=== PATIENT | male | born 1995 | race Caucasian/White ===

== ENCOUNTER 2025-04-05 08:26 | Emergency (ER) | payer SELFPAY ==
[2025-04-05 08:27] VITALS: BP 149/111; PULSE 109; RESP 18; TEMP 35.8; O2SAT 100; BMI 32.1
[2025-04-05 09:01] LABS: Hematocrit 45.8 % (40-54); Hemoglobin 16.4 g/dL (13.0-16.5); Immature Granulocytes Count 0.010 X10^3/uL (0.0-0.0); Mean Corp Hgb Conc 35.8 g/dL (32-36); Mean Corpuscular Volume 85.0 fL (80-94); Mean Platelet Vol. 10.7 fl (6.2-12.0); NRBC Flagged by Analyzer 0 % (0-5); Platelet Count 280 K/mm3 (150-450); RBC Distribution Width CV 12.2 % (11.6-14.6); RBC Distribution Width SD 36.6 fl (35.1-43.9); Red Blood Count 5.39 M/mm3 (4.6-6.2); White Blood Count 5.6 K/mm3 (4.4-11.0)
[2025-04-05 09:20] LABS: Alcohol, Blood (Medical)-Serum < 10.1 mg/dL (<=10.0); Anion Gap 11 (5-15); BUN 13 mg/dL (4-19); BUN/Creat Ratio 16.5 RATIO (10-20); Calcium,Total 9.6 mg/dL (7.6-11.0); Carbon Dioxide 27.2 mmol/L (21.0-32.0); Chloride 100 mmol/L (98-108); Estimated Creatinine Clearance 181.53 ml/min (50-250); Glucose 330 mg/dL (70-99); Potassium 4.3 mmol/L (3.3-5.1)
[2025-04-05 09:47] VITALS: BP 133/85; PULSE 91; RESP 18; O2SAT 100
[2025-04-05 11:24] LABS: Barbiturate Urine NEGATIVE (< 200 ng/mL); Benzodiazepine Urine NEGATIVE (< 200 ng/mL); PCP Urine NEGATIVE (< 25 ng/mL); THC Urine NEGATIVE (< 50 ng/mL)
[2025-04-05 12:53] VITALS: BP 130/90; PULSE 93; RESP 17; TEMP 36.8; O2SAT 97
== END 2025-04-05 13:09 | disposition home or self-care (01) ==
PROVIDERS: Emergency Provider Student in an Organized Health Care Education/Training Program; Visit Provider Student in an Organized Health Care Education/Training Program
DX: R45.851 Suicidal ideations (principal); F41.9 Anxiety disorder, unspecified; F32.A Depression, unspecified
CPT/HCPCS: 80048; 80307; 82077; 85025; 99283

== ENCOUNTER 2025-05-04 08:00 | Outpatient (RCR) | payer MEDICAID, SELFPAY ==
--- NOTE | 2025-05-04 10:10 | BH.SGPN.GN ---
Behaviors/Verbalizations/Mental Status: [] Eye contact is good. Motor activity is appropriate. Appearance is casual. Speech is Appropriate. Mood is euthymic Affect is congruent. Thoughts are linear and logical. No evidence of psychosis. Client Response/Progress/Benefit: [] Pt first day in program and engaged in session AEB listening attentively to others and providing input throughout. Pt engaged in activity, able to connect how it can be uncomfortable and difficult to practice acceptance when situations are out of one?s own control. Identified what they are struggling to accept in personal life. Worked with peer group to define acceptance and identify the benefits that acceptance can bring. Benefits included; reduced anger, self forgiveness, moving forward, and improved mental health. Seemed to benefit from increased awareness of the meaning as well as the importance of acceptance. Will continue in IOP to improve emotion regulation, increase overall functioning, and prevent decompensation. Narrative Note: []
--- NOTE | 2025-05-04 11:15 | BH.SGPN.GN ---
Behaviors/Verbalizations/Mental Status: [] Pt alert and oriented, casually dressed and groomed. Eye contact good. Motor activity appropriate. Speech within normal limits. Affect congruent, mood euthymic. Thoughts linear, logical, no signs of hallucinations or delusions. Client Response/Progress/Benefit: [] Pt's first day in program and responded well to session AEB taking notes and contributing to discussion throughout. Pt engaged as group continued discussion on acceptance and the mental health benefits of practicing acceptance. Pt and peers identified what makes acceptance challenging and pt completed a self-reflection exercise on what is hard to accept in pt's life. Group identified strategies to increase acceptance. Pt noted wanting to work on ?gratitude and going with the flow? as a strategy for improving acceptance. Pt appeared to benefit from gaining insight and learning strategies to increase acceptance. Pt will continue IOP tx to promote mood stability, reinforce healthy coping skills, and combat distortions. Narrative Note: []
--- NOTE | 2025-05-05 07:46 | BH.PSY.EVA_ITS ---
Intake Vital Signs 04/05/25 08:27 05/05/25 07:47 05/05/25 09:16 Height 6 ft 1 in 6 ft 1 in 6 ft Weight: 245 lb BP 131/94 H Pulse 91 Intake Visit Reasons: IOP intake evaluation Allergies No Known Allergies Allergy (Verified 05/05/25 09:17) Medications ?Medication ?Instructions ?Recorded ?Confirmed ?Type sertraline 50 mg tablet 50 mg PO DAILY #30 tabs 04/16 07/09 Rx PFSH () Medical History Anxiety disorder, unspecified Major depressive disorder, recurrent severe without psychotic features Anxiety Depression Non-smoker Social History Smoking Status: Never smoker HPI () History of Present Illness History provided by: patient Chief complaint: depression/anxiety HPI: Sanya Rivera is a 29 year old male who presents today for eval as part of [facility] IOP. Patient reports to having had suicidal thoughts for the past 1-2 years. Recently lost housing, car and job all around the same time. Started with losing his housing as he has essentially not been able to afford lifestyle. Had been living with his brother in [place] but after his mother sold an old car that brother thought was his, his brother was taking frustration out on him. Then moved in to a hotel and couldn't continue to afford. This caused him to lose his car because of the costs as well. Now living with his sister in [place]. Was working at [employer] but couldn't drive to work because of lack of transportation. Reports that his mood is little depressed which has been baseline for prolonged period. After two days of living with sister, made comment about wanting to kill self while taking a shower. Sister encouraged him to go to ER and then was referred to [facility]. Does try to do things like take a hike to help with mood symptoms, which helps to some degree. Reports to having depressive symptoms first around 2017 and 2018. Does have fleeting passive thoughts of suicide. Denies intent or plan. Voices family as positive preventative factor. Does admit to feeling more anxious in past month. Sleep: usually gets 4-6 hours Interest: will play video games, reduced frieda Guilt: admits to feeling both guilty and worthless Energy: normal possibly low Concentration: can stay on a task Appetite: normally; denies any major weight change recently Psychomotor: slowing Suicide: admits to current passive, fleeting thoughts Memory: fine Anxiety: admits to feeling more anxious than normal Obsessions: denies Compulsions: denies Kathy:denies PTSD: denies Psychosis: denies history of auditory or visual hallucinations, denies disorganized thoughts, denies disorganized speech Developmental History Developmental History: Siblings - 1 brother, 1 sister Born/Raised - [place], [place] Education - graduated from [employer] Living Situation - lives with sister Legal Issues - denies Employment - currently working at [employer] for the past two weeks Psychiatric History Previous psychiatric treatment history: No Previous psychiatric diagnoses: ADHD Previous psychiatric treatment programs: none Family Psychiatric History: Sister - depression Paternal aunt - depression Maternal uncle - completed suicide Suicidal Ideation Current: Yes Intent: No Plan: No Past: Yes History of suicide attempt: No Suicide Risk Assessment Suicide risk factors: depression and financial trouble Suicide protective factors: responsibility for family and family support Self Injurious Behavior Current: none Past: none Medication Trials Previous psychiatric medication trials: Ritalin - took as a child Current/Previous Provider Psychiatrist: denies Therapist: remote past none current Other Substance Use History Nicotine- denies Alcohol- very occasional on special occasions Marijuana- denies Stimulants- denies Opioids- denies Other- denies Review of systems () Constitutional Denies: fever(s), chills, change in weight or fatigue Eyes Denies: change in vision or blurry vision Ears, Nose, Mouth, Throat Denies: throat pain, neck pain or change in hearing Cardiovascular Denies: chest pain, palpitations or dyspnea Respiratory Denies: dyspnea, cough or wheezing Gastrointestinal Denies: abdominal pain, nausea, vomiting, diarrhea or constipation Genitourinary Denies: dysuria or urinary frequency Musculoskeletal Denies: back pain, neck pain, joint pain or muscle weakness Integumentary/Breast Denies: rash or new lesions Neurological Denies: headache(s), dizziness or confusion Endocrine Denies: fatigue or excessive sweating Hematologic/Lymphatic Denies: easy bruising or easy bleeding Allergic/Immunologic Denies: wheezing Exam () Mental Status Exam- Psych () Appearance casually dressed and unkempt Attitude cooperative and calm Activity/Motor Behavior MSE activity/motor behavior finding no adventitious movements Speech regular rate, regular volume and regular prosody Mood depressed Affect restricted and tearful Thought Process linear, logical and coherent Thought Content no delusions and no hallucinations Suicidal Ideation passive; Not active, No intent and No plans Homicidal Ideation none Attention intact Concentration intact Sensorium/Orientation awake, alert and oriented x3 Memory/Cognition other (appropriate for stated age) Insight fair Judgement good Exam () Constitutional Documenting provider has reviewed patient's vital signs: yes Common normals: no acute distress, patient oriented x3 and alert General appearance: well developed Neuro Common normals: patient oriented x3 Sensorium/orientation: alert Gait (neuro): normal gait Assessment & Plan () Assessment & Plan (1) Major depressive disorder, recurrent severe without psychotic features: Plan: - Sertraline 50 mg every day ?Patient was informed about the risk, benefits and possible side effects of SSRI type medications. These side effects include but are not limited to nausea, diarrhea, headache, increased bleeding risk, and sexual dysfunction. - The patient will start the IOP in Behavior[facility] at [facility] as the structure, support, education and group therapy with ideally prevent worsening of patient's symptoms which could result in admission to higher level of care such as [facility] or psychiatric admission. I have reasonable expectation that the patient will make timely and significant improvement in the presenting acute symptoms as a result of the program and eventually be discharged to a lower level of care. -. Take all medications as prescribed.? Please avoid the use of alcohol or drugs.? Attend all outpatient appointments as scheduled.? See your primary care provider if you develop any medical problems.? If you develop thoughts of harming yourself or others please call 911, present to the nearest emergency room, or call the [place] Crisis line at . Resources are also available through the National Suicide Prevention Lifeline at . -Patient demonstrates both the ability and capacity to respond to treatment. The length of treatment will likely vary pending on the severity of symptoms and r esponse to medication and behavioral therapies. (2) Anxiety disorder, unspecified: Plan: - See above Charges/Coding Behavior Health Behavior Health Psychiatric Evaluation: 17007 Psych Diag Exam w/ Medical Services
--- NOTE | 2025-05-05 07:47 | BH.DR.ITP ---
Initial Treatment Plan Patient Information Visit Information: ADMISSION DATE: 05/04/2025 EXPECTED LOS: 4-6 weeks Diagnoses:: Major depressive disorder, anxiety disorder unspecified Problems/Symptoms Problem #1:: MDD Symptom:: Passive suicidality, anhedonia, low mood, poor motivation, hopelessness Symptom:: Anxiety unspecified Problem #2:: Nervousness, avoidance, rumination
--- NOTE | 2025-05-05 08:00 | BH.NA_ITS ---
Physical Data Vital Signs Pulse Rate: 91 Blood Pressure: 131/94 Height/Weight Height: 1.83 m Weight:: 111.13 kg Weight in Pounds: 245.0 lbs Functional Assessment Sleep Pattern Describe any problems with sleeping: Client states he has been sleeping 4-6 hours per night. Sensory/Communication Assess Vision Problems Do you have any vision problems?: Glasses Communication Problems Do you have difficulty understanding what people are saying?: No Surgical History Surgical History Have you had any surgeries? If so, list type and date:: Yes (I&D to leg as a kid) Substance Abuse Substance Abuse Please describe substance abuse in the last 30 days:: Client states he occasionally drinks alcohol on holidays. Client denies tobacco or substance use. Client drinks caffeine daily, usually 2 pops per day. Mental Status Summary Mental Status Significant Findings/Observations on Appearance and Mood:: Client is alert and oriented x 4. Client is casually groomed. Client is cooperative with assessment. Client makes good eye contact. Client's voice has normal rate and volume. Client has a somewhat restricted affect. Client makes logical associations and has normal processing. Client denies delusions/hallucinations. Client reports some fleeting SI, denies plan or intent with fleeting SI, denies SI today. Suicide Assessment Suicidal Ideation Are you currently or have you been suicidal in the past?: Yes Suicidal Intentional Rating Scale (SIRS): Suicidal thoughts (past) Physician Notification Past Psychiatric History MH Treatment Hx Past Psychiatric Medications:: was on Ritalin for ADHD as a child Age of first mental health symptoms: Client states he was diagnosed with ADHD as a child. Client states he has been having depression symptoms for a few years, but states he has never been on medication for depression. Describe (age, circumstance, etc) any past hospitalizations: None. Current providers for mental health treatment (counselor, psychiatrist, case finishing machine adjuster, etc.): None. Fall Risk Assessment Age Age: Less than 60 Mental Status Mental Status: Willing & able to ask for assistance when needed Physical Status Physical Status: No problems Impairments Impairments: None Elimination Elimination: Continent AND independent Gait or Balance Gait or Balance: Walks independently Hx of Falls History of falls in the past 6 months: No known history Medications/Substances Medications/substances used within the past 24 hours or ordered to administer: None of the medications/substances list above Total Score Total Points:: 0 RN Summary of Impressions Impressions Recommendations Impressions: Psychiatric Issues: major depressive disorder Level of Care How do the client's current symptoms and functional deficits support need for this level of care?: Client was referred to IOP after an ER visit 04/05/25 after his sister overheard him say he wanted to shoot himself. Client was discharged from the ER with a safety plan. Client does admit he has been having suicidal thoughts over the last year, stating they are fleeting and usually pass quickly and denies plan/intent. Client denies SI this day. Client states over the last month, he has lost his housing, his car and his job. Client is currently living with his sister. Client is future oriented, stating he is looking for a job. IOP will promote gains and prevent further decompensation while providing social support and skills training. Nutritional Screen Height/Weight Height: 1.83 m Weight:: 111.13 kg Weight in Pounds: 245.0 lbs Nutrition Screening Normal Weight: 111.13 kg Normal/Usual Weight in Pounds: 245.0 lbs Have you lost weight without trying: No Have you been eating poorly because of a decreased appetite: No Recently been on tube feeds, TPN, or have any nutritional access device in place: No Have any large open wounds or wounds that are not healing: No Calculated Weight Change: 0 Change in weight Score: 0 MST Screening Tool Score: 0
[2025-05-05 09:16] VITALS: BP 131/94; PULSE 91
--- NOTE | 2025-05-05 10:10 | BH.SGPN.GN ---
Behaviors/Verbalizations/Mental Status: [] Pt alert and oriented, casually dressed and groomed. Eye contact fair. Motor activity appropriate. Speech within normal limits. Affect full , mood euthymic, Thoughts linear, logical, no signs of hallucinations or delusions. Client Response/Progress/Benefit: [] Pt participated in group discussion. Group worked together to identify benefits of healthy relationships which included improves mental health, encouragement, motivation, accountability, validation, connection, someone to share experiences with, and support during challenges. Group identified factors that lead to unhealthy relationships which included trauma, lack of communication, and substance use. Benefited from increased insight and awareness of benefits of healthy relationships and factors that contribute to unhealthy relationships. Will continue in IOP to increase consistent use of healthy coping skills, challenge negative thoughts, and prevent decompensation. Narrative Note: []
--- NOTE | 2025-05-08 10:10 | BH.SGPN.GN ---
Behaviors/Verbalizations/Mental Status: [] Pt alert and oriented, casual appearance, eye contact fair. Motor activity appropriate. Speech within normal limits. Affect congruent. Mood dysthymic. Thoughts linear, logical, no signs of hallucinations or delusions. Client Response/Progress/Benefit: [] Pt was an active participant in group discussions on defining conflict (internal/external) and possible benefits to conflict. Attentive during psychoeducation on conflict styles (avoidant, accommodating, competing, cooperative) and engaged during group discussion in which the group identified when it is beneficial to use conflict styles and pitfalls of each conflict style. Pt noted they connect most with avoidant and accommodating style of conflict. Pt was an able to connect the impact current style of conflict has on functioning. Benefited from increased awareness of the impact of conflict styles on mental health. Will continue in IOP to increase consistent use of healthy coping skills, challenge distorted thoughts, and prevent decompensation.
--- NOTE | 2025-05-08 11:10 | BH.SGPN.GN ---
Behaviors/Verbalizations/Mental Status: []Client alert and oriented, casually dressed and groomed. Eye contact fair. Motor activity appropriate. Speech within normal limits. Affect congruent, mood anxious. Thoughts linear, logical, no signs of hallucinations or delusions. Client Response/Progress/Benefit: [] Pt engaged in session AEB contributing to discussion and engaging in small group. Attentive during discussion on strategies for more effectively managing conflict in personal life. Pt noted current conflict resolution style uses the most is accommodating because doesn't want to cause any issues. Pt participated in small group for activity and did well practicing how to manage conflict scenarios. Pt given handout on fair fighting rules and how to identify common conflict barriers. Pt indicated what needs improvement in conflict for them- expressing feelings with words. Appeared to benefit from gaining strategies to help pt better manage conflict. Will continue IOP tx prevent decompensation, gain healthy coping skills, and improve daily functioning. Narrative Note: []
--- NOTE | 2025-05-09 09:00 | BH.SGPN.GN ---
Behaviors/Verbalizations/Mental Status: []Eye contact is good. Motor activity is appropriate. Appearance is casual. Speech is Appropriate. Mood is depressed. Affect is congruent. Thoughts are linear and logical. No evidence of psychosis. Reviewed daily check in sheet and pt denies SI, plan, or intent as of this date 05/08/25. Client Response/Progress/Benefit: [] Pt was an active participant in group discussions. Attentive. Did well to identify 2 mental health wins, which included being able to use opposite action and go walking over the weekend. Described this as improving his overall mood as a result. Additional win noted as making it to group despite struggling with low motivation and energy levels. Stressor noted as learning his aunt had a stroke over the weekend and worrying for her health. Appeared to benefit from provided support, encouragement, and feedback. Identified areas of progress and skills to maintain gains. Will continue IOP tx to improve mood stability, develop healthy coping repertoire, and prevent decompensation. Narrative Note: []
--- NOTE | 2025-05-09 09:05 | BH.SGPN.GN ---
Behaviors/Verbalizations/Mental Status: [] Eye contact is good. Motor activity is appropriate. Appearance is casual. Speech is Appropriate. Mood is dysthymic. Affect is congruent. Thoughts are linear and logical. No evidence of psychosis. Reviewed daily check in sheet and no reports of suicidal ideations. Client Response/Progress/Benefit: [] Pt participated when prompted. Attentive. He states that his depression continues to impact him daily however he is attempting to incorporate healthy habits and coping strategies. Has been consistent with IOP and went for a walk yesterday. He has also been attending work. Limited progress noted. Benefited from group support, encouragement, and feedback. Will continue in IOP to maintain safety, prevent decompensation, and improve functioning. Narrative Note: []
--- NOTE | 2025-05-09 10:15 | BH.SGPN.GN ---
Behaviors/Verbalizations/Mental Status: []Pt alert and oriented, neatly dressed and groomed. Eye contact good. Motor activity appropriate. Speech within normal limits. Affect constricted, mood depressed. Thoughts linear, logical, no signs of hallucinations or delusions. Client Response/Progress/Benefit: [] Pt engaged in session AEB client listening attentively to peers and providing input. Attentive and contributed to discussion as group worked on defining self-forgiveness and identifying mental health benefit. Identified benefits as: reduce guilt/shame, increase self-confidence, decrease negative self-talk, healthier relationships, ect. ?Worked in small groups to identify factors that can make self-forgiveness difficult. Pt identified a personal barrier to self-forgiveness including lack of compassion for oneself. Benefited from increased education on self-forgiveness, benefits, and what effects it. Pt will continue IOP tx to prevent decompensation, improve daily functioning, and gain healthy coping skills. ? Narrative Note: []
--- NOTE | 2025-05-09 14:10 | BH.MDN ---
Multi-Disciplinary Note Note 30-min Individual: Time Started:: 11:35 Date: 05/09/25 Purpose of session/treatment goals addressed:: To gather information on pt's current stressors, symptoms, triggers, history, and tx goals. Another goal was to build rapport and provide emotional support. Eye Contact:: Good Motor Activity:: Appropriate Appearance:: Casual Speech:: Soft Mood:: Dysthymic Affect:: Flat Thoughts:: Linear, Logical and No evidence of hallucinations/delusions noted Staff Interventions:: rapport building, strengths perspective and treatment planning Client Response:: Pt responded well to session, open to meeting with therapist. Pt reports he has been struggling for the past few months to a year due to multiple stressors in his life. Pt's father was diagnosed with Alzheimer's last year and he is now currently living in a care facility. Pt shared my mom kind of went crazy during that time too. Pt shared around this time he also moved out and started living with his brother. Pt noted that he had to move to [place] recently because I lost my housing, I lost my car, and then I lost my job. Pt declined to elaborate, but pt noted that he had a falling out with his brother and then he was unable to pay for his car which resulted in losing his car. Pt was then not able to get to his work and lost his job. Pt reported he has been having suicidal ideations daily and he thinks about shooting himself. Pt reports he would not do this and most of the time the thoughts last less than a minute. Pt shared his outlook on life has been pretty hopeless lately. Pt has been in counseling in the past and found it somewhat beneficial. Pt stated he works second shift at [employer] which pt just started a few weeks ago. Pt reports his sister and aunt are his primary supports currently as his mother lives towards [place]. Pt shared walking and playing video games currently helps pt cope. Risks/Concerns:: Pt reports having passive SI daily, but denies any plan or intent. Pt reports that he has thoughts of shooting himself, but he denies any access to weapons. Pt stated he wants to work on reducing these thoughts. Progress Toward Goals/Plan:: Pt begin IOP tx on 05/04/25, so limited progress noted. Pt reports enjoying the groups in IOP so far and shared that he likes hearing other people's perspectives. Pt reports he is not currently linked with counseling and he was just started on a medication. Pt would like to work on reducing avoidance, reducing suicidal ideations, and having a better outlook on life. Pt will continue IOP tx to prevent decompensation, improve daily functioning, and gain healthy coping skills. Time Stopped:: 11:55
--- NOTE | 2025-05-09 14:11 | BH.MTP ---
[facility] Treatment Plan Patient Information Program Physician:: Dr. Misael Miguel Primary Therapist:: Rosi HALEY Psychiatric Diagnoses Psychiatric Diagnoses:: MDD, current, severe, without psychosis F 33.2; Anxiety unspecified. Estimated LOS Estimated LOS (in weeks):: 6 Problem/Goal #1 Problem/Goal #1 Stated Goal:: Pt will decrease depressive symptoms and suicidal ideations. Description of Barriers: Pt is not connected to outpatient services. Pt has numerous psychosocial stressors including recently losing his car, having to move, losing his previous job, conflict that led to a falling out with his brother, and his father having Alzheimer's. Functional Impact: Pt is a 29-year-old male with a history of MDD and anxiety. Pt has no previous psychiatric admissions. Pt was referred to [facility] by [facility] after a mental health evaluation. Pt has been experiencing suicidal ideations that are passive and fleeting. Pt reports he keeps thinking I want to shoot myself but pt denies any intent or plan. No access to weapons. At admission to [facility], pt endorses a depressed mood, significant sleep issues, low motivation, occasional hopelessness and worthlessness, and avoidance. Pt reports his symptoms worsened around the time his father got diagnosed with Alzheimer's last year and then more recently pt had numerous psychosocial stressors. Goal Relevant Strengths/Supports: Pt has support from his sister and aunt who live in [place]. Pt has no history of suicide attempts. Pt recently got a new job at [employer]. Objectives Objective #1: Stated Objective: Pt will learn and utilize 2-3 healthy coping strategies to better manage depressive symptoms as shown by a decrease of DMS-5 symptoms for depression and suicidal ideations. Interventions: Through group and individual sessions, therapist will help pt identify triggers and warning signs of depression including emotional, physical, and behavioral changes. Therapist will teach pt various coping skills to manage symptoms and give pt tangible resources to use to regulate emotions. Therapist will use cognitive restructuring techniques and help pt gain awareness of negative thoughts that reinforce guilt and depression. Therapist will provide psychoeducation on maintenance cycles and help pt learn ways to break unhealthy maintenance cycles. Therapist will help pt incorporate behavioral activation and assist pt in setting SMART goals. Discharge Criteria: Pt will have met this goal when can report learning and using at least 2 coping skills to manage depressive symptoms and reduce isolation. Additionally, pt will have met this goal when pt's DSM-5 scores for depression decrease. Target Date: 06/15/25 Review Date: 05/25/25 Status: open Objective #2: Stated Objective: Pt will identify at least 2-3 negative self-talk messages used to reinforce negative core beliefs, worthlessness, and hopelessness and replace thoughts with balanced, realistic messages. Interventions: Therapist will help pt identify distorted, negative beliefs about self and replace with more realistic, affirmative messages. Therapist will use CBT and DBT to help pt increase insight to the connection between thoughts, emotions, and behaviors. Therapist will encourage pt to practice thought challenging. Discharge Criteria: Pt will have achieved this goal when can verbalize at least 2 cognitive distortions and effectively replace those thoughts with affirmative messages. Target Date: 06/15/25 Review Date: 05/25/25 Status: open Problem/Goal #2 Problem/Goal #2 Stated Goal:: Will reduce anxiety symptoms and avoidance. Description of Barriers: Pt is not connected to outpatient services. Pt has numerous psychosocial stressors including recently losing his car, having to move, losing his previous job, conflict that led to a falling out with his brother, and his father having Alzheimer's. Functional Impact: Pt is a 29-year-old male with a history of MDD and anxiety. Pt has no previous psychiatric admissions. Pt was referred to [facility] by [facility] after a mental health evaluation. Pt has been experiencing suicidal ideations that are passive and fleeting. Pt reports he keeps thinking I want to shoot myself but pt denies any intent or plan. No access to weapons. At admission to [facility], pt endorses a depressed mood, significant sleep issues, low motivation, occasional hopelessness and worthlessness, and avoidance. Pt reports his symptoms worsened around the time his father got diagnosed with Alzheimer's last year and then more recently pt had numerous psychosocial stressors. Goal Relevant Strengths/Supports: Pt has support from his sister and aunt who live in [place]. Pt has no history of suicide attempts. Pt recently got a new job at [employer]. Objectives Objective #1: Stated Objective: Pt will increase ability to manage stressors and anxiety by gaining 2-3 distress tolerance skills. Interventions: Through group and individual therapy, pt will learn various coping skills to help manage stress and anxiety. Therapist will utilize DBT distress tolerance skills to increase awareness and give pt tools to more effectively manage anxiety. Therapist will provide psychoeducation on emotional regulation and help pt identify unhealthy coping skills he wants to change. Discharge Criteria: Pt will have accomplished this goal when can report improved ability to manage stressors and identify at least 2 distress tolerance skills. Target Date: 06/15/25 Review Date: 05/25/25 Status: open Objective #2: Stated Objective: Pt will identify 2-3 anxiety triggers and 2 coping skills to use when feeling anxious or overwhelmed to manage anxiety as shown by reducing DSM-5 scores for anxiety Interventions: Therapist will provide education on anxiety, avoidance behaviors, and maintenance cycles. Therapist will help pt explore personal symptoms and warning signs of anxiety and Trichotillomania. Therapist will teach pt coping skills to improve emotional regulation, mindfulness, and distress tolerance to help pt cope with anxiety in the moment. Discharge Criteria: Pt will have accomplished this goal when pt can identify at least 2 triggers and report using 2 coping skills to manage anxiety. Additionally, pt will have accomplished this goal AEB reduction of DSM-5 scores for anxiety Target Date: 06/15/25 Review Date: 05/25/25 Status: open
--- NOTE | 2025-05-12 09:00 | BH.SGPN.GN ---
Behaviors/Verbalizations/Mental Status: [] Eye contact is good. Motor activity is appropriate. Appearance is casual. Speech is Appropriate. Mood is depressed and anxious. Affect is full. Thoughts are linear and logical. No evidence of psychosis. Reviewed daily check in sheet and no reports of suicidal ideations. Client Response/Progress/Benefit: [] Pt participated when prompted. Attentive. Daily symptom tracker notes 2/5 for depression. Reports moderate anxiety and stress related to holiday event today. Very brief check-in stating that he is optimistic about a new medication that was started last week. Feeling a little better but not a whole lot. Limited progress noted. Benefited from group support, feedback, and encouragement. Will continue in IOP to maintain safety, increase healthy coping, and stablize mood. Narrative Note: []
--- NOTE | 2025-05-12 10:00 | BH.SGPN.GN ---
Behaviors/Verbalizations/Mental Status: [] Eye contact is fair to good. Motor activity is appropriate. Appearance is casual. Speech WNL. Mood is dysthymic. Affect is congruent. Thoughts are linear and logical. No evidence of psychosis. Client Response/Progress/Benefit: [] Client was an active participant in group discussion and experiential activity. Attentive during psychoeducation on resilience. Participated in interactive discussion with peers on the definition of resilience. Group identified that resiliency can be impacted by; past experiences, personality, and current mental health state. Group also worked together to identify the benefits of being resilient and how it is related to mental health. Worked well with peers in small group in which they identified factors that contribute to resilience. Benefited from increased awareness of resilience and the factors that contribute to building resilience. Will continue in IOP to improve daily functioning, challenge negative thoughts, and prevent decompensation.
--- NOTE | 2025-05-12 11:03 | BH.SGPN.GN ---
Behaviors/Verbalizations/Mental Status: []Pt alert and oriented, neatly dressed and groomed. Eye contact good. Motor activity appropriate. Speech within normal limits. Affect congruent, mood engaged. Thoughts linear, logical, no signs of hallucinations or delusions. Client Response/Progress/Benefit: [] Pt responded well to session AEB completing the resilience worksheet provided. Pt participated in the discussion and worked cooperatively with group to identify strategies to enhance each of the components discussed. pt reports belief they use the trait ?moving towards goals? and pt wants to work on nurturing a positive view of self. Pt seemed to benefit from discussing strategies for improving personal resilience and identifying resilience traits pt already possesses. Will continue IOP tx to prevent decompensation, increase self-care practices, and improve daily functioning. Narrative Note: []
== END 2025-05-14 23:59 ==
LOC: BHIOP 08:00
PROVIDERS: Referring Provider Student in an Organized Health Care Education/Training Program; Visit Provider Student in an Organized Health Care Education/Training Program
DX: F33.2 Major depressive disorder, recurrent severe without psychotic features (principal); F41.9 Anxiety disorder, unspecified
CPT/HCPCS: H2012; H2020; S9480; 90832

== ENCOUNTER 2025-05-15 13:22 | Outpatient (RCR) | payer MEDICAID, SELFPAY ==
--- NOTE | 2025-05-15 09:00 | BH.SGPN.GN ---
Behaviors/Verbalizations/Mental Status: [] Eye contact is good. Motor activity is appropriate. Appearance is casual. Speech is Appropriate. Mood is euthymic. Affect is full. Thoughts are linear and logical. No evidence of psychosis. Reviewed daily check in sheet and no reports of suicidal ideations Client Response/Progress/Benefit: [] Pt participated when prompted. Attentive. Reports improved mood. Shared that he made breakfast for his family, is completing tasks/responsibilities, has more energy, and id practicing healthy coping. Progress noted. Benefited from group support, encouragement, and feedback. Will continue in IOP to prevent decompensation, increase healthy coping, and improve functioning. Emotion is ?even?. Narrative Note: []
--- NOTE | 2025-05-15 13:59 | BH.MDN_ITS ---
Multi-Disciplinary Note Note 45-min Individual: Time Started:: 10:40 Date: 05/15/25 Purpose of session/treatment goals addressed:: to work on goal #1 of pt's tx plan. Eye Contact:: Fair Motor Activity:: Appropriate Appearance:: Neat Speech:: Appropriate Mood:: Depressed and Other (hopeful) Affect:: Congruent Thoughts:: Linear, Logical and No evidence of hallucinations/delusions noted Staff Interventions:: thought challenging, psychoeducation on: (the cognitive triangle ), CBT techniques, strengths perspective, goal setting and taught coping skills (taught thought challenging techniques.) Client Response:: Pt responded well to session, open to meeting with therapist. Pt reports he is doing okay today and shared he had a good Thanksgiving. Pt feels that the medication change is helping and he hopes he can find coping skills to help reduce his symptoms. Pt receptive to learning about the cognitive triangle and maintenance cycles of depression. Pt able to identify his own patterns in thinking and behaviors that reinforce depressive symptoms. Pt's behaviors included not brushing his teeth, not showering, isolating, staying in bed, and not being active. Pt also identified his thought patterns that reinforce depression including distortions such as over-generalizing, jumping to conclusions, labeling, and mental filtering. Pt shared he struggles with assuming things which then makes pt not want to put himself out there. Pt receptive to practicing thought challenging using the worksheet in the IOP binder. Pt did well and reports willingness to try this on his own. Risks/Concerns:: Pt denies any active SI, plan, or intent. Pt reports being hopeful and wants to work on making changes. Progress Toward Goals/Plan:: Limited progress as it is pt's second week of IOP tx. Pt reports he is finding benefit of being in IOP, especially being around others. Pt shared he is gaining awareness and he is ready to work on goals to improve self-care and thoughts that reinforce depression. Pt continues to endorse depressive symptoms with fleeting, passive SI, and lack of motivation. Pt receptive to creating a habit tracker. Pt is anxious about poten tial issues with his insurance, which could hinder treatment. Pt will continue IOP tx to prevent decompensation, improve daily functioning, and improve mood stability. Time Stopped:: 11:20
--- NOTE | 2025-05-18 14:01 | BH.DS ---
Discharge Summary Demographics Date of Admission:: 05/04/25 Discharge Date: 05/18/25 Presenting Problems at Admission:: The patient is a 29-year-old male diagnosed with Major Depressive Disorder and Anxiety Disorder, unspecified. He has no history of prior psychiatric admissions. The patient was referred to [facility] Intensive Outpatient Program (IOP) following an Emergency Department (ED) visit on 04/05/25 for a mental health evaluation related to depressive symptoms and suicidal ideation. According to ED documentation, the patient?s sister overheard him verbalizing suicidal thoughts while in the shower, stating he wanted to kill himself. The patient later reported, ?I didn?t mean it,? and expressed that he believed his sister overreacted by taking him to the ED. The patient endorsed a long-standing pattern of passive thoughts of and survival ambivalence, which he described as intermittent and without associated plan or intent. He consistently denied active suicidal ideation, intent, or history of suicide attempts. He reported never experiencing a formulated plan or intent to harm himself. The patient denied homicidal ideation, psychotic symptoms, and substance use. Regarding depressive symptoms, the patient denied significant disturbances in sleep, appetite, or energy but endorsed low motivation and occasional feelings of hopelessness and worthlessness. He denied social isolation, avoidance behaviors, crying spells, or impairment in activities of daily living (ADLs). Significant psychosocial stressors included the recent loss of employment and repossession of his vehicle; however, he has since secured new employment. No substance use concerns were reported. Discharge Diagnoses:: Major depressive disorder, recurrent severe without psychotic features Anxiety Disorder, unspecified Reason for Discharge:: The patient is being discharged from the Intensive Outpatient Program (IOP) due to unresolved insurance coverage issues. On 05/15/25, it was discovered that the patient?s Medicaid insurance had been terminated approximately two weeks earlier. The patient reported being unaware of this termination and stated that he had received no notification from Medicaid regarding the change in his status. He was strongly encouraged to contact Medicaid immediately to clarify the situation. On 05/16/25, staff followed up with the patient regarding the insurance issue. The patient reported that he had reached out to Medicaid; however, no resolution had been achieved, and he remained unsure of the reason for the termination. He was again encouraged to pursue clarification promptly, as continuation in [facility] required active insurance coverage. On 05/17/25, staff spoke with the patient once more. At that time, there was still no resolution regarding his insurance status. The patient was informed that only he can clarify and resolve this matter with Medicaid. Due to the lack of coverage, the patient will be discharged from [facility] level of care. Prior to discharge, the patient was provided with referrals for outpatient mental health counseling and medication management. He was also given information on the Hospital Care Assurance Program (HCAP) and financial assistance options through [facility] [employer]. The patient was encouraged to utilize these resources and continue pursuing clarification of his insurance status with Medicaid as soon as possible. Treatment Progress During Treatment & Response: Limited progress in treatment as he was only in [facility] for 2 weeks. Pt never disclosed any active suicidal ideations while in [facility] level of care. Issues Still to be Addressed:: Long-standing depression and anxiety. Fleeting suicidal ideations which have decreased since starting IOP. Occasional low energy and motivation. Discharge Recommendations/Instructions:: Prior to discharge, the patient was provided with referrals for outpatient mental health counseling and medication management. He was also given information on the Hospital Care Assurance Program (HCAP) and financial assistance options through [facility] [employer]. The patient was encouraged to utilize these resources and continue pursuing clarification of his insurance status with Medicaid as soon as possible. Encouraged to call if he has any issues with his medications. Discharge Handout
== END 2025-05-18 14:42 | disposition home or self-care (01) ==
LOC: BHIOP 13:22
PROVIDERS: Referring Provider Student in an Organized Health Care Education/Training Program; Visit Provider Student in an Organized Health Care Education/Training Program
DX: F33.2 Major depressive disorder, recurrent severe without psychotic features (principal); F41.9 Anxiety disorder, unspecified
CPT/HCPCS: H2012; S9480; 90834